=== PATIENT | female | born 1970 | race Caucasian/White ===

== ENCOUNTER 2017-10-09 20:28 | Emergency (ER) | payer MEDICAID ==
[2017-10-09] MEDS: MECLIZINE 12.5 MG TAB PO (22:38)
[2017-10-09] MEDS: ONDANSETRON (ODT) 4 MG TAB ODT (22:39)
== END 2017-10-10 00:52 | disposition home or self-care (01) ==
LOC: FTE 10-10 00:52
DX: H81.11 Benign paroxysmal vertigo, right ear (principal)
CPT/HCPCS: 70450; 99284-25